=== PATIENT | female | born 1990 | race Hispanic/Latino ===

== ENCOUNTER 2024-08-31 13:26 | Emergency (ER) | payer OTHER ==
[~2024-08-31] VITALS: Ht 160 cm; Wt 88.7 kg
[2024-08-31] MEDS: ACETAMINOPHEN 325 MG TAB PO ONE (14:35)
[2024-08-31] MEDS: METOCLOPRAMIDE HCL 10 MG/2ML VIAL IV ONE (14:36)
[2024-08-31] MEDS: SODIUM CHLORIDE 0.9% 1000ML 1,000 ML IV ONE (14:36)
[2024-08-31] MEDS ORDERED: ONDANSETRON ODT4 MG PO (15:35)
[2024-08-31] MEDS ORDERED: REGLAN10 MG PO (15:40)
[2024-08-31 15:48] VITALS: PULSE 70; RESP 18; TEMP 97.6; O2SAT 99
== END 2024-08-31 16:05 | disposition home or self-care (01) ==
LOC: FSED 13:30
DX: O20.0 Threatened abortion (principal); M54.50 Low back pain, unspecified
CPT/HCPCS: 36415; 76801; 76817; 80053; 81003; 81025; 84702; 85025; 85610; 86850; 86900; 96374; 99284; J2765; J7030